=== PATIENT | male | born 2000 | race Two or more races ===

== ENCOUNTER 2025-07-18 19:36 | Emergency (ER) | payer MEDICAID, SELFPAY ==
--- NOTE | 2025-07-18 19:45 | XR_ITS ---
Examination: Duplex scan of the upper extremity, unilateral right Date and time of exam: February 15, 2025, 10 0 3:00 p.m. INDICATIONS: Right forearm pain and swelling beginning yesterday Technique: Duplex scan of the extremity veins using B-mode/grayscale imaging and Doppler spectral analysis and color flow Attention is directed to internal echogenicity, compression and augmentation involving these veins, color flow assessment, spectral analysis Findings: Major deep venous structures in the extremity demonstrate normal course and caliber. There is no evidence of deep vein thrombosis. Normal color flow and spectral analysis Impression: Negative for DVT..
[2025-07-18 20:22] VITALS: BP 107/66; PULSE 77; RESP 18; TEMP 36.6; O2SAT 96; BMI 25.0
--- NOTE | 2025-07-18 20:51 | XR_ITS ---
Examination: Forearm, right, 2 views. Technique: Forearm, AP, lateral 2 views Date and time of exam: July 18, 2025, 2053 hours INDICATIONS: Injury to the forearm today, forearm pain. FINDINGS: No fracture or dislocation No foreign body IMPRESSION: No fracture or dislocation
--- NOTE | 2025-07-18 21:06 | PD.EDEXREM ---
ED Extremity Problem RME/HPI General Chief complaint: Extremity Problem,Nontraumatic Stated complaint: RIGHT FOREARM SWELLING AND PAIN Time Seen by Provider: 07/18/25 20:51 Arrival date/time: 07/18/25 19:36 25M with no significant PMH presents to ED with 2 days of R forearm swelling and pain w/o known fall/trauma or skin injury. Limitations: no limitations Related Data Allergies Allergy/AdvReac Type Severity Reaction Status Date / Time No Known Allergies Allergy Verified 07/18/25 19:37 Review of Systems Review of Systems Systems Reviewed: All systems reviewed, normal except as documented Integumentary/Breasts Skin/Breast: Reports as per HPI, Reports skin pain and Reports skin swelling Past Medical History Social History SMOKING STATUS: Never smoker ED Exam General Limitations: Present no limitations General appearance: Present alert and in no apparent distress Head Head exam: Present atraumatic Neck Neck exam: Present normal inspection, full ROM and trachea midline Chest Chest inspection: Present normal inspection and symmetric chest wall rise Extremities Exam Extremities exam: Present full ROM Expanded Upper Extremity Exam Forearm/Wrist exam: Present full ROM (R), tenderness and swelling Neurological Exam Neurological exam: Present alert and oriented X3 Psychiatric Psychiatric exam: Present normal affect and normal mood Skin Skin exam: Present warm, dry, intact and normal color Course Quality Measures none Orders Category Date Time Status vero wrap [Splint / Immobilizer] STAT Care 07/18/25 23:12 Active US venous doppler UE RT Stat Exams 07/18/25 19:45 Completed XR forearm RT 2V Stat Exams 07/18/25 20:51 Completed dexAMETHasone INJ [Decadron Inj] Med 07/18/25 22:30 Discontinued 10 mg PO X1 ONE Vital Signs Vital signs: Vital Signs Temperature 97.9 F 07/18/25 20:22 Pulse Rate 77 07/18/25 20:22 Respiratory Rate 18 07/18/25 20:22 Blood Pressure 107/66 07/18/25 20:22 Pulse Oximetry (%) 96 07/18/25 20:22 Oxygen Delivery Method Room Air 07/18/25 20:22 O2 at 96% on RA and WNLs Extremity Problem MDM Narrative MDM Narrative:: 25M with no significant PMH presents to ED with 2 days of R forearm swelling and pain w/o known fall/trauma or skin injury. Physical exam reveals R forearm swelling and tenderness. No redness. Patient is afebrile, calm, and alert. XR unremarkable. US no DVT. Unclear etiology. Given meds, VERO, and probation counselor. Patient data External records reviewed:: None Clinical information provided by:: patient Social determinants that could affect healthcare access:: none Patient has the following chronic illnesses:: none How is presenting disease/condition affected by chronic disease/condition?: no chronic disease Evaluation data The following diagnostics were reviewed and interpreted by me:: radiology exam(s) Lab and/or radiology exams considered but not ordered:: ordered Interpretation Summary: above Medications / Prescriptions Medications or Prescriptions considered but not ordered:: not ordered Medication administrations:: Medication Administration History Discontinued Medications Dexamethasone Sodium Phosphate (Dexamethasone Sod Phos Inj 10 Mg/Ml Vial) 10 mg PO X1 ONE Stop: 07/18/25 22:31 Last Admin: 07/18/25 22:56 Dose: 10 mg Documented By: BD Comments: given po n/a Consultations Consultation(s) initiated? (list below): No Diagnosis Extremity Problem Differential Diagnosis: herpes zoster, gout, cellulitis, superficial thrombophlebitis, lower extremity edema, deep vein thrombosis of lower extremity and other (skin swelling) Most likely diagnosis given after review of the tests above:: swelling of skin Admission Indicated Admission indicated?: not indicated Admission Request Was there a request for admission?: No Disposition Plan Disposition Plan: Discharge Discharge Attestation Discharge Attestation: The patient and all family members were given an opportunity to ask questions and understood the discharge instructions. Discharge instructions specifically effects, indications for sooner follow up or return to the emergency department, and the expected course of current diagnosis. Patient condition: Stable Discharge Plan Plan Patient Disposition: HOME (Self Care) Discharge Disposition comment: Stable Prescriptions/Referrals Referrals: No Primary/Family,Physician [Primary Care Provider] - In 1 week Problem List Clinical Impression: Swelling of skin Patient/Caregiver Discharge Instructions Education Materials: ED Contusion, Upper Extremity Additional Instructions: Please follow-up with PCP within 24-48 hours and return immediately if symptoms worsen. If problem persists, recommend outpatient PT and/or MRI follow-up. In the meantime, rest, use ice/heat, and/or compression. Print Language: Bel[place]ian Stand Alone Forms: Patient Portal Info Letter SANJEEV/CLIFF Supervising Physician SANJEEV/CLIFF Supervising Physician: Dr. Prieto
[2025-07-18 23:18] VITALS: BP 110/68; PULSE 78; RESP 19; TEMP 36.7; O2SAT 100
== END 2025-07-18 23:20 | disposition home or self-care (01) ==
PROVIDERS: Emergency Provider Emergency Medicine
DX: M79.89 Other specified soft tissue disorders (principal)
CPT/HCPCS: 73090; 93971; 99283; J1100